=== PATIENT | female | born 1995 | race Caucasian/White ===

== ENCOUNTER 2017-06-20 10:04 | Emergency (ER) | payer MEDICAID ==
[2017-06-20 10:10] VITALS: BP 124/78; PULSE 88; RESP 16; TEMP 97.3; O2SAT 100
[2017-06-20] MEDS ORDERED: LANTUS2P SQ (10:21)
[2017-06-20] MEDS ORDERED: NOVOINJ2 SQ (10:21)
[2017-06-20] MEDS ORDERED: NEUR100C PO (10:31)
--- NOTE | 2017-06-20 10:46 | PD ---
HPI Chief Complaint: Diabetic Time Seen by Provider: 10:15 Travel History International Travel<30 days: No Contact w/Intl Traveler<30days: No Traveled to known affect area: No History of Present Illness HPI The patient was seen and examined in the presence of the nurse. This patient is insulin-dependent diabetic for the last 10 years. She does not follow a proper diet and her sugars always run high. Currently her Accu-Chek is 303. She hasn't been to a doctor in a long time but has an appointment next week. Her complaint today is for the last several weeks she's had burning and tingling and hypersensitivity primarily in her feet and legs but also to some degree in the hands. She denies muscle weakness or sensory loss. Speech slurring or confusion. Severity is moderate. PFSH Past Medical History Diabetes: Yes Patient Takes Glucophage: No Influenza Vaccination: No ?: Not LMP: 05/25/17 Past Surgical History Surgical History: No Previous Surgery Social History Alcohol Use: No Tobacco Use: No Substance Use: No Allergies-Medications (Allergen,Severity, Reaction): Coded Allergies: No Known Allergies (Unverified , 06/20/17) Reported Meds & Prescriptions Reported Meds & Active Scripts Active Neurontin (Gabapentin) 100 Mg Cap 100 Mg PO TID Reported Lantus Inj (Insulin Glargine) 1,000 Unit/10 Ml Vial 33 Units SQ HS Novolog Mix 70-30 FlexPen Inj (Insulin Aspart Protam-Asp 70-30 Inj) 300 Unit/3 Ml Pen 10 Units SQ TIDAC Review of Systems General / Constitutional: No: Fever HENT: No: Headaches Cardiovascular: No: Chest Pain or Discomfort Gastrointestinal: No: Abdominal Pain Physical Exam Narrative GENERAL: Well-nourished, well-developed patient in no apparent distress. SKIN: Focused skin assessment reveals no rash and nodules. Skin is Warm and dry. HEAD: Atraumatic. Normocephalic. EYES: Pupils equal and round. No scleral icterus. No injection or drainage. ENT: No nasal bleeding or discharge. Mucous membranes pink and moist. NECK: Trachea midline. No JVD. CARDIOVASCULAR: Regular rate and rhythm. No murmur appreciated. RESPIRATORY: No accessory muscle use. Clear to auscultation. Breath sounds equal bilaterally. GASTROINTESTINAL: Abdomen soft, non-tender, nondistended. Hepatic and splenic margins not palpable. MUSCULOSKELETAL: No obvious deformities. No clubbing. No cyanosis. No edema. NEUROLOGICAL: Awake and alert. No obvious cranial nerve deficits. Motor grossly within normal limits. Normal speech. Sensation is intact to sharp and light touch in the feet and hands but she has a paresthesia there PSYCHIATRIC: Appropriate mood and affect; insight and judgment normal. Data Data Last Documented VS Vital Signs Date Time Temp Pulse Resp B/P (MAP) Pulse Ox O2 Delivery O2 Flow Rate FiO2 06/20/17 10:22 Room Air 06/20/17 10:10 97.3 88 16 124/78 (93) 100 MDM Medical Decision Making Medical Screen Exam Complete: Yes Emergency Medical Condition: Yes Medical Record Reviewed: Yes Differential Diagnosis Diabetic neuropathy, anxiety, paresthesia, stroke Narrative Course I have reviewed the patient's electronic medical record. Patient is objectively normal neurologic exam but describes stocking glove distribution paresthesias, much worse in the legs and feet I suspect she is developed diabetic neuropathy given her chronic long-term noncompliance with diet and elevated glucose I wrote her some Neurontin Encouraged her to follow proper diet I think this is the way to start rather than just raising her insulin a lot Encouraged her to track her sugars Diagnosis Primary Impression: Diabetic neuropathy associated with type 1 diabetes mellitus Qualified Codes: E10.42 - Type 1 diabetes mellitus with diabetic polyneuropathy Additional Instructions: The patient was advised to follow up with their physician and return if they worsen. Check and record blood sugar frequently Follow diabetic diet Med/Other Pt SpecificInfo: Prescription(s) given Scripts Gabapentin (Neurontin) 100 Mg Cap 100 MG PO TID, #90 CAP 0 Refills Prov: Slade Vidales MD 06/20/17 Disposition: 01 DISCHARGE HOME Condition: Stable Slade Vidales MD Jun 20, 2017 10:46
== END 2017-06-20 11:04 | disposition home or self-care (01) ==
LOC: PHED 10:04
DX: E10.42 Type 1 diabetes mellitus with diabetic polyneuropathy (principal); Z79.4 Long term (current) use of insulin; Z79.899 Other long term (current) drug therapy
CPT/HCPCS: 99283